=== PATIENT | female | born 1955 | race Caucasian/White ===

== ENCOUNTER 2018-03-16 15:33 | Outpatient (CLI) | payer BC, SELFPAY ==
[2018-03-16 18:45] LABS: Cholesterol 260 mg/dL (50-200); Glucose 91 mg/dL (70-100); HDL Cholesterol 67 mg/dL (40-60); LDL CHOLESTEROL 170 mg/dL (<100); Triglyceride 141 mg/dL (30-150)
== END 2018-03-16 15:53 ==
PROVIDERS: PCP General Practice; Visit Provider General Practice
DX: E78.00 Pure hypercholesterolemia, unspecified (principal); Z00.00 Encounter for general adult medical examination without abnormal findings
CPT/HCPCS: 36415; 80061; 82947; 83721

== ENCOUNTER 2020-11-03 20:46 | Outpatient (REF) | payer BC, SELFPAY ==
[2020-11-03 14:10] LABS: Calculated LDL 147 mg/dL (<100); Cholesterol 213 mg/dL (<200); Glucose 98 mg/dL (74-106); HDL Cholesterol 56 mg/dL (40-60); Triglyceride 53 mg/dL (<150)
== END 2020-11-03 20:47 | disposition home or self-care (01) ==
LOC: NCHCN 20:46
PROVIDERS: PCP General Practice; Visit Provider Family Medicine
DX: Z00.00 Encounter for general adult medical examination without abnormal findings (principal); E78.5 Hyperlipidemia, unspecified
CPT/HCPCS: 80061; 82947

== ENCOUNTER 2020-11-27 11:28 | Outpatient (REF) | payer BC, SELFPAY ==
--- NOTE | 2020-11-27 10:15 | PAPFT_PTH ---
PATIENT: Dianne Martinez LOC: [facility] U#:[id number] AGE/SX: 64/F ROOM: RE11/27/[address]: Demar Arnold : 1955 BED: DIS: 11/27/2020 SPEC #: [id number] RECD: 11/27/20 17:30 STATUS: AMBER RELeanne #: [id number] FLAKITO: 11/27/20 10:[address]: Demar Arnold DEPT: [facility] Cytology RECD BY: Sherlyn Haney ENTERED: 11/27/20 17:31 SP TYPE: PAPFT OTHR DR: Prateek Dickey Tissues: 1 - CX/ENDOCX FOR PAP SMEARS Procedures: PAP THIN PREP/[facility] Screening HPV DNA PROBE Comments: [id number]
== END 2020-11-27 11:29 | disposition home or self-care (01) ==
LOC: NCHCN 11:28
PROVIDERS: PCP General Practice; Visit Provider Family Medicine
DX: Z00.00 Encounter for general adult medical examination without abnormal findings (principal); Z12.4 Encounter for screening for malignant neoplasm of cervix; Z01.419 Encounter for gynecological examination (general) (routine) without abnormal findings; Z11.51 Encounter for screening for human papillomavirus (HPV)
CPT/HCPCS: 88142; 87624

== ENCOUNTER 2020-12-18 01:25 | Outpatient (CLI) | payer BC, SELFPAY ==
--- NOTE | 2020-12-18 | DI.MAMMO_ITS ---
Exam(s) MAMMO SCREENING EXAM: MAMMO SCREENING CLINICAL HISTORY: SCREENING, HEALTH MAINTENANCE EXAM, Z00.8,Z12.31. TECHNIQUE: Bilateral full field digital CC and MLO mammographic images were obtained with 3D tomosyn thesis and utilizing computer aided detection (CAD). COMPARISON: Prior mammogram of 2014. There are no interval mammograms. This patient underwent right breast biopsy 10 years ago, apparently negative for malignancy. FINDINGS: Asymmetric tissue medially in the left breast is unchanged. No new findings evident in the immediate vicinity of the biopsy marker clip in the right breast. However, there is a 6 x 5 millimeter asymmetric density-possible nodule in the right breast retroareo lar region. Approximately 12 o'clock position. No malignant-appearing microcalcification groups in this region or elsewhere in either breast There is no significant architectural distortion nor skin thickening-retraction. IMPRESSION: 1. No radiographic evidence of malignancy in left breast. 2. Retroareolar region nodule measuring approximately 6 x 5 mm in the right breast. Spot compression view and ultrasound recommended. BI-RADS Category 0 - Assessment Incomplete: Need additional imaging evaluation Breast Density - Category C - Heterogeneously dense Breast density Category C or D implies that the patient has dense breast tissue. Dense breast tissue can make it harder to find cancer on a mammogram. Dense breast tissue is also associated with an incr eased risk of breast cancer. This information about the result of the mammogram report was provided to the patient to raise their awareness. Use this report when you speak with the patient about their risks for breast cancer, which includes their family history. At that time, you may recommend additional screening tests (Ultrasoun d or MRI) as these tests may add significant information. A negative radiographic report should not delay biopsy if a dominant or clinically suspicious mass is present. Up to ten percent of cancers are not identified on mammography. A negative report may reinforce clinical impression. Adenosis and dense breasts may obscure an underlying neoplasm. False positive reports average 6 to 10%. Patient will receive a letter notifying them of these results.
== END 2020-12-18 01:45 ==
PROVIDERS: PCP General Practice; Visit Provider Family Medicine
DX: Z00.00 Encounter for general adult medical examination without abnormal findings (principal); Z12.31 Encounter for screening mammogram for malignant neoplasm of breast; R92.8 Other abnormal and inconclusive findings on diagnostic imaging of breast
CPT/HCPCS: 77063; 77067

== ENCOUNTER 2020-12-29 03:29 | Outpatient (CLI) | payer BC, SELFPAY ==
--- NOTE | 2020-12-29 | DI.MAMMO_ITS ---
Exam(s) MG MAMMO SCREEN CALL BACK UNI US BREAST RT LIMITED EXAM: MG MAMMO SCREEN CALL BACK UNI and U/S breast RT limited CLINICAL HISTORY: F/U MAMMO, RT RETROAREOLAR NODULE. TECHNIQUE: Craniocaudal and mediolateral oblique Full Field Digital Mammography views of the right b reast with Computer Aided Diagnosis followed by Tomosynthesis and right breast ultrasound. COMPARISON: Comparison with prior examinations. FINDINGS: Mammography/Tomosynthesis: Masses/Architectural Distortion: The additional views again show well-circumscribed nodule at the 12 o'clock position of the right breast. This nodule is unchanged compared to prior examinations. Microcalcifictions: No suspicious pleomorphic-type are seen. Skin Thickening/Nipple Retraction: None. Right breast US: Echotexture: Normal appearance of the glandular tissue. Shadowing: No suspicious foci. Cyst: There is a 0.7 x 0.3 x 0.8 cm cyst at the 12 o'clock position of the right breast 2 cm from the nipple which corresponds to the mammographic abnormality. Solid lesions: None seen. Ductal dilation: None. IMPRESSION: 1. No evidence of malignancy is noted. 2. Unless there is more urgent need, follow-up screening mammography is recommended, as per [place] [employer] guidelines. 3. The findings were discussed with the patient on the date of the examination. BI-RADS Category 2 - Benign Findings Breast Density - Category C - Heterogeneously dense Breast density Category C or D implies that the patient has dense breast tissue. Dense breast tissue can make it harder to find cancer on a mammogram. Dense breast tissue is also associated with an incr eased risk of breast cancer. This information about the result of the mammogram report was provided to the patient to raise their awareness. Use this report when you speak with the patient about their risks for breast cancer, which includes their family history. At that time, you may recommend additional screening tests (Ultrasoun d or MRI) as these tests may add significant information. A negative radiographic report should not delay biopsy if a dominant or clinically suspicious mass is present. Up to ten percent of cancers are not identified on mammography. A negative report may reinforce clinical impression. Adenosis and dense breasts may obscure an underlying neoplasm. False positive reports average 6 to 10%. Patient will receive a letter notifying them of these results.
== END 2020-12-29 03:49 ==
PROVIDERS: PCP General Practice; Visit Provider Family Medicine
DX: Z12.31 Encounter for screening mammogram for malignant neoplasm of breast (principal); N63.15 Unspecified lump in the right breast, overlapping quadrants
CPT/HCPCS: 76642; 77063; 77067

== ENCOUNTER 2023-01-17 17:39 | Outpatient (REF) | payer MEDICARE, SELFPAY ==
[2023-01-17 15:47] LABS: HCT 40.3 % (36.0-46.0); HGB 13.8 g/dL (11.2-15.7); MCH 31.2 pg (27.0-33.0); MCHC 34.2 % (32.0-36.0); MCV 91 fL (80-95); MPV 10.2 fL (8.0-11.0); Platelet Count 380 10^3/uL (130-400); RBC 4.42 10^6/uL (3.93-5.22); RDW 11.7 % (11.7-14.6); RDW-SD 39.5 fL; WBC 7.12 10^3/uL (4.4-10.8)
[2023-01-17 16:37] LABS: ALT 35 U/L (14-59); AST 22 U/L (15-37); Albumin 4.4 g/dL (3.4-5.0); Alkaline Phosphatase 114 U/L (46-116); Anion Gap 9.7 mmol/L (3-11); BUN 11 mg/dL (7-18); Bilirubin, Total 0.8 mg/dL (0.2-1.0); CO2 26.3 mmol/L (21.0-32.0); CREATININE 0.7 mg/dL (0.55-1.02); Calcium 9.7 mg/dL (8.5-10.1); Calculated LDL 179 mg/dL (<100); Chloride 100 mmol/L (98-107); Cholesterol 262 mg/dL (<200); Estimated GFR 95.92 (mL/min/1.73m2); Glucose 94 mg/dL (74-106); HDL Cholesterol 57 mg/dL (40-60); Potassium 4.5 mmol/L (3.5-5.1); Sodium 136 mmol/L (136-145); Total Protein 7.6 g/dL (6.4-8.2); Triglyceride 134 mg/dL (<150)
== END 2023-01-17 17:40 | disposition home or self-care (01) ==
LOC: NCHCN 17:39
PROVIDERS: PCP General Practice; Visit Provider Family Medicine
DX: E78.5 Hyperlipidemia, unspecified (principal); Z00.8 Encounter for other general examination
CPT/HCPCS: 80053; 80061; 85027

== ENCOUNTER 2024-05-31 17:27 | Outpatient (CLI) | payer MEDICARE, SELFPAY ==
[2024-05-31 16:06] LABS: HCT 40.7 % (36.0-46.0); HGB 13.9 g/dL (11.2-15.7); MCH 31.4 pg (27.0-33.0); MCHC 34.2 % (32.0-36.0); MCV 92 fL (80-95); MPV 9.7 fL (8.0-11.0); Platelet Count 403 10^3/uL (130-400); RBC 4.43 10^6/uL (3.93-5.22); RDW 12.1 % (11.7-14.6); RDW-SD 40.6 fL; WBC 9.75 10^3/uL (4.4-10.8)
[2024-05-31 17:06] LABS: ALT 31 U/L (14-59); AST 22 U/L (15-37); Albumin 4.4 g/dL (3.4-5.0); Alkaline Phosphatase 118 U/L (46-116); Anion Gap 8.6 mmol/L (3-11); BUN 20 mg/dL (7-18); Bilirubin, Total 0.59 mg/dL (0.2-1.0); CO2 29.4 mmol/L (21.0-32.0); CREATININE 0.9 mg/dL (0.55-1.02); Calcium 9.8 mg/dL (8.5-10.1); Calculated LDL 165 mg/dL (<100); Chloride 102 mmol/L (98-107); Cholesterol 248 mg/dL (<200); Estimated GFR 70.51 (mL/min/1.73m2); Glucose 97 mg/dL (74-106); HDL Cholesterol 65 mg/dL (40-60); Potassium 4.5 mmol/L (3.5-5.1); Sodium 140 mmol/L (136-145); Total Protein 8.1 g/dL (6.4-8.2); Triglyceride 94 mg/dL (<150)
[2024-06-02 05:13] LABS: Hemoglobin A1C 5.3 % (<5.7)
== END 2024-05-31 17:28 | disposition home or self-care (01) ==
LOC: LBO 17:28
PROVIDERS: PCP General Practice; Visit Provider Family Medicine
DX: Z00.00 Encounter for general adult medical examination without abnormal findings (principal)
CPT/HCPCS: 36415; 80053; 80061; 85027; 83036

== ENCOUNTER 2024-11-22 18:38 | Outpatient (REF) | payer MEDICARE, SELFPAY | END 2024-11-22 18:39 | disposition home or self-care (01) | LOC: NCHCN 18:38 | PROVIDERS: PCP General Practice; Visit Provider Family Medicine | DX: R30.0 Dysuria (principal); R82.89 Other abnormal findings on cytological and histological examination of urine | CPT/HCPCS: 87086 ==